=== PATIENT | male | born 1950 | race Hispanic/Latino ===

== ENCOUNTER → 2019-01-15 | Outpatient (CLI) | payer MEDICARE | END | disposition home or self-care (01) | LOC: SHCH 08:23 | PROVIDERS: ATTEND Internal Medicine Cardiovascular Disease | DX: I08.3 Combined rheumatic disorders of mitral, aortic and tricuspid valves (principal) | CPT/HCPCS: 93306 ==

== ENCOUNTER → 2025-05-17 | Outpatient (CLI) | payer OTHER ==
[~2025-05-17] MED LIST: GADOTERATE MEGLUMINE 10 MMOL/20 ML VIAL IV ONE
--- NOTE | 2025-05-17 23:00 | HMCIMG ---
STUDY MR brain with and without intravenous contrast. HISTORY Homonymous bilateral left visual field defects. TECHNIQUE Multisequence, multiplanar MR imaging of the brain performed before and after intravenous contrast administration. COMPARISON None provided. FINDINGS Brain Age-appropriate diffuse cerebral volume loss is present. In the right occipital lobe, there is a T2/FLAIR hyperintense lesion without diffusion restriction and with subtle post-contrast enhancement, favored to represent a chronic gliotic focus given the imaging appearance and clinical context. No additional intracranial mass, acute infarction, hemorrhage, midline shift, or extra-axial fluid collection is identified. Central arterial and venous flow voids are preserved. Ventricles Ventricular size and configuration are within normal limits for age, without hydrocephalus. Orbits Orbits are unremarkable. Sinuses and mastoids Paranasal sinuses and mastoid air cells are clear. Bones and sella Skull demonstrates no acute fracture or aggressive osseous lesion. The dorsum sellae is prominent and indents the undersurface of the optic chiasm; the pituitary gland is normal in size and morphology. IMPRESSION * T2/FLAIR hyperintense lesion in the right occipital lobe without diffusion restriction and with subtle enhancement, most compatible with chronic gliosis given the appearance and history of homonymous left visual field defect; in this age group, carballo considerations include sequela of prior infarct or inflammatory insult favored, with less likely low-grade neoplasm or demyelinating plaque. * Prominent dorsum sellae indenting the optic chiasm with a normal-sized pituitary gland, a likely anatomic variant without definite sellar mass. * If clinically warranted, correlation with detailed neuro-ophthalmologic evaluation and consideration of interval follow-up brain MRI with contrast (for example in 612 months or sooner if symptoms progress) could help confirm stability and further exclude an underlying neoplasm. /[place]
--- NOTE | 2025-05-17 23:06 | HMCIMG ---
EXAM: Bilateral carotid duplex ultrasound. CLINICAL HISTORY: Other abnormal findings on diagnostic imaging of central nervous system. COMPARISON: Prior MRI dated 05/17/2025. TECHNIQUE: Williamson-scale, color Doppler, and spectral Doppler evaluation of the bilateral common carotid, internal carotid, external carotid, and vertebral arteries was performed. FINDINGS: Right Carotid System: The right common carotid artery demonstrates normal waveforms with a peak systolic velocity of 85 cm/s. No significant plaque is present. The internal carotid artery peak systolic velocity measures 101 cm/s with an ICA/CCA ratio of 1.2, consistent with no hemodynamically significant stenosis. The external carotid artery peak systolic velocity measures 109 cm/s. The right vertebral artery demonstrates antegrade flow with a peak systolic velocity of 32 cm/s. Left Carotid System: The left common carotid artery demonstrates normal waveforms with a peak systolic velocity of 56 cm/s. Mild calcified atherosclerotic plaque is present at the carotid bifurcation without significant luminal narrowing. The internal carotid artery peak systolic velocity measures 74 cm/s with an ICA/CCA ratio of 1.3, consistent with no hemodynamically significant stenosis. The external carotid artery peak systolic velocity measures 117 cm/s. The left vertebral artery demonstrates antegrade flow with a peak systolic velocity of 51 cm/s. IMPRESSION: 1. No hemodynamically significant stenosis of the bilateral internal carotid arteries, with estimated stenosis less than 50% bilaterally by velocity criteria. 2. Mild calcified atherosclerotic plaque at the left carotid bifurcations. 3. Normal antegrade flow within the bilateral vertebral arteries. 4. Comparison is made with prior MRI dated 05/17/2025. Finding are similar. RECOMMENDATIONS Per ACR and Society of Radiologists in Ultrasound consensus guidelines, no routine surveillance imaging is required for carotid artery stenosis less than 50% in asymptomatic patients. Clinical management with risk factor modification is recommended. Follow-up carotid ultrasound may be considered if new neurologic symptoms develop or if clinically indicated. /[place]
== END | disposition home or self-care (01) ==
LOC: RAH 10:43
PROVIDERS: ATTEND Internal Medicine
DX: I65.23 Occlusion and stenosis of bilateral carotid arteries (principal); G98.8 Other disorders of nervous system; H53.462 Homonymous bilateral field defects, left side; R90.89 Other abnormal findings on diagnostic imaging of central nervous system
CPT/HCPCS: 70553; 93880; A9575